=== PATIENT | male | born 2000 | race African-American/Black ===

== ENCOUNTER 2021-05-03 19:57 | Emergency (ER) | payer OTHER ==
[~2021-05-03] VITALS: Ht 177.8 cm; Wt 108.9 kg
[2021-05-03] MEDS ORDERED: DOLOGEN 325-11 EACH PO (22:10)
== END 2021-05-03 22:28 | disposition home or self-care (01) ==
LOC: ER 19:57 → EMR PED 20:01 → ER 20:01 → EMR PED 22:28
DX: R07.89 Other chest pain (principal)